=== PATIENT | female | born 1990 | race Caucasian/White ===

== ENCOUNTER 2025-03-25 11:27 | Emergency (ER) | payer BC, SELFPAY ==
[2025-03-25 11:41] VITALS: BP 102/79
[2025-03-25 11:56] LABS: % Basophils 0.1 % (0-2); % Eosinophils 0.7 % (0-6); % Immature Granulocytes 0.4 % (0-0.5); % Lymphocytes 6.6 % (20.5-51.1); % Monocytes 4.9 % (1.7-9.3); % Neutrophils 87.3 % (42.2-75.2); Absolute Eosinophils 0.1 10^3/uL (0-0.7); Absolute Lymphocytes 0.7 10^3/uL (1.2-3.4); Absolute Monocytes 0.5 10^3/uL (0.1-0.6); Absolute Neutrophils 8.6 10^3/uL (1.4-6.5); Hematocrit 39.9 % (37.0-47.0); Mean Corp Hgb Conc. 32.6 g/dL (33.0-37.0); Mean Corpuscular Volume 91.9 fL (81.0-99.0); Mean Platelet Volume 11.1 fL (7.4-10.4); Nucleated Red Blood Cells % 0 %; Platelet Count 195 10^3/uL (130-400); Red Blood Cell Count 4.34 10^6/uL (4.20-5.40); Red Cell Dist. Width 14.5 % (11.5-14.5); White Blood Cell Count 9.8 10^3/uL (4.8-10.8)
[2025-03-25 12:06] LABS: Urine Albumin 1+ (Neg - Trace); Urine Bilirubin Negative (Negative); Urine Character Cloudy (Clear); Urine Color Yellow; Urine Glucose Negative (Negative); Urine Ketone Negative (Negative); Urine Leukocyte 1+ (Negative); Urine Nitrite Negative (Negative); Urine Occult Blood 4+ (Negative); Urine Urobilinogen Negative (Neg - 1+)
[2025-03-25 12:14] LABS: HCG, Serum Qualitative Screen Negative
[2025-03-25 12:19] LABS: ALT (SGPT) < 10 U/L (0-35); AST (SGOT) 15 U/L (14-36); Albumin 4.6 g/dl (3.5-5.0); Alkaline Phosphatase 82 U/L (38-126); Blood Urea Nitrogen 10 mg/dl (7-17); Calcium 9.1 mg/dl (8.4-10.2); Carbon Dioxide 21 mmol/L (22-30); Chloride 107 mmol/L (98-107); Glucose 125 mg/dl (70-99); Potassium 3.9 mmol/L (3.5-5.1); Sodium 139 mmol/L (135-145); Total Bilirubin 0.8 mg/dl (0.2-1.3); Total Protein 6.7 g/dl (6.3-8.2); eGFR > 60.00
[2025-03-25 12:33] LABS: Lipase 26 U/L (23-300)
[2025-03-25 12:53] LABS: Urine Squamous Cell >30 /LPF (Few)
[2025-03-25 12:54] LABS: Urine Bacteria Moderate (Negative)
[2025-03-25 12:55] LABS: Urine Red Blood Cell 0-2 /HPF (0-2)
[2025-03-25] MEDS: NSS 1000 IV (15:15)
[2025-03-25] MEDS: TORADOL 30 MG IV (15:15)
[2025-03-25] MEDS: ZOFRAN 4 MG IV (15:15)
--- NOTE | 2025-03-25 15:19 | ED.GENMED ---
History of Present Illness
<Chalo Pineda PA-C - Last Filed: 03/25/25 16:16>
General
Chief Complaint: Abdominal Pain
Source: patient
Time Seen by Provider: 03/25/25 15:04
History of Present Illness
History of Present Illness:
34-year-old female with past medical history of GERD, anxiety and depression presenting to the emergency department for evaluation of relatively sudden onset nausea vomiting diarrhea at 4 AM this morning, continues with generalized abdominal
cramping currently. No fevers, chills, rigors. No known sick contacts, recent travel or recent antibiotics. Patient does note that she was out drinking on Tuesday evening but states that she did not drink any more than she normally would. Notes a
surgical history of previous but no other surgical history. Social history otherwise noncontributory.
Past History
<Chalo Pineda PA-C - Last Filed: 03/25/25 16:16>
Past History
ED Past Medical History: GERD and Psychiatric (Anxiety and depression)
ED Past Surgical History: Gynecological (D&C) and Other (Sinus surgery)
Social History
Tobacco: Former smoker
Alcohol: None
Drug: None
Personal:
Living: with family
Review of Systems
<Chalo Pineda PA-C - Last Filed: 03/25/25 16:16>
Review of Systems
All Other Systems: ROS reviewed and negative except as documented in HPI and ROS
Phy Exam
<Chalo Pineda PA-C - Last Filed: 03/25/25 16:16>
Physical Exam
Physical Exam:
GENERAL: Alert , in no apparent distress But does appear uncomfortable
EYE: clear conjunctiva b/l
HEAD: NCAT
ENT: mmm.
CARDIAC: Regular rate and rhythm .
LUNGS: Clear breath sounds bilaterally, no acute respiratory distress, no wheezes/rales/rhonchi
ABDOMEN: Soft, generalized tenderness, normoactive bowel sounds, no r/g, no cvat, negative Egan sign, no tenderness at McBurney's point
NEUROLOGICAL: Alert and oriented
SKIN: Warm and dry, skin intact.
MUSCULOSKELETAL: well perfused.
PSYCH: Normal and appropriate interaction.
Scores
<Chalo Pineda PA-C - Last Filed: 03/25/25 16:16>
Heart Failure Risk
Heart Failure Risk Score: Not Applicable
Heart Score for Chest Pain Patients
STEMI patient?: Not applicable
Withdrawal Assessment of Alcohol
Withdrawal Assessment Completed?: Not applicable
Course
<Chalo Pineda PA-C - Last Filed: 03/25/25 16:16>
Orders/Labs/Results
Orders:
Orders
03/25/25 11:43
Test Result ONCE
03/25/25 11:49
Complete Blood Count/With Diff Urgent
Comprehensive Metabolic Panel Urgent
HCG, Serum Qualitative Screen Urgent
Lipase Urgent
Urinalysis Reflex To Culture Urgent
Date Specimen was Collected: 03/25/25
Time Specimen was Collected: 11:43
Urine Microscopic Reflex Cult Urgent
Urine Culture Urgent
ANA LILIA Source: U
Specimen Description:
Date Specimen was Collected: 03/25/25
Time Specimen was Collected: 11:43
03/25/25 15:04
0.9% Sodium Chloride 1000 ml [Nss] 1,000 ml IV BOLUS
Ketorolac [Toradol] 30 mg IV NOW STA
Ondansetron Injectable [Zofran] 4 mg IV NOW STA
Abnormal Lab Results
03/25/25
11:49
MCHC 32.6 L g/dL
(33.0-37.0)
MPV 11.1 H fL
(7.4-10.4)
Absolute Neuts (auto) 8.6 H 10^3/uL
(1.4-6.5)
Absolute Lymphs (auto) 0.7 L 10^3/uL
(1.2-3.4)
Neutrophils % 87.3 H %
(42.2-75.2)
Lymphocytes % 6.6 L %
(20.5-51.1)
Carbon Dioxide 21 L mmol/L
(22-30)
Glucose 125 H mg/dl
(70-99)
Ur Occult Blood Reflex 4+ A
(Negative)
Leukocyte Esterase Rfl 1+ A
(Negative)
Urine Bacteria (Reflex) Moderate A
(Negative)
Urine Albumin (Reflex) 1+ A
(Neg - Trace)
03/25/25 11:49
03/25/25 11:49
Vital Signs
Initial and Last Documented VS:
Initial Vital Signs
Temp Pulse Resp BP Pulse Ox
98.4 F 99 16 102/79 98
03/25/25 11:41 03/25/25 11:41 03/25/25 11:41 03/25/25 11:41 03/25/25 11:41
Last Documented Vital Signs
Temp Pulse Resp BP Pulse Ox
98.4 F 99 16 118/70 99
03/25/25 11:41 03/25/25 11:41 03/25/25 11:41 03/25/25 15:23 03/25/25 15:23
<Sabiha Barriga PA-C - Last Filed: 03/25/25 17:10>
Orders/Labs/Results
Orders:
Orders
03/25/25 11:43
Test Result ONCE
03/25/25 11:49
Complete Blood Count/With Diff Urgent
Comprehensive Metabolic Panel Urgent
HCG, Serum Qualitative Screen Urgent
Lipase Urgent
Urinalysis Reflex To Culture Urgent
Date Specimen was Collected: 03/25/25
Time Specimen was Collected: 11:43
Urine Microscopic Reflex Cult Urgent
Urine Culture Urgent
ANA LILIA Source: U
Specimen Description:
Date Specimen was Collected: 03/25/25
Time Specimen was Collected: 11:43
03/25/25 15:04
0.9% Sodium Chloride 1000 ml [Nss] 1,000 ml IV BOLUS
Ketorolac [Toradol] 30 mg IV NOW STA
Ondansetron Injectable [Zofran] 4 mg IV NOW STA
Abnormal Lab Results
03/25/25
11:49
MCHC 32.6 L g/dL
(33.0-37.0)
MPV 11.1 H fL
(7.4-10.4)
Absolute Neuts (auto) 8.6 H 10^3/uL
(1.4-6.5)
Absolute Lymphs (auto) 0.7 L 10^3/uL
(1.2-3.4)
Neutrophils % 87.3 H %
(42.2-75.2)
Lymphocytes % 6.6 L %
(20.5-51.1)
Carbon Dioxide 21 L mmol/L
(22-30)
Glucose 125 H mg/dl
(70-99)
Ur Occult Blood Reflex 4+ A
(Negative)
Leukocyte Esterase Rfl 1+ A
(Negative)
Urine Bacteria (Reflex) Moderate A
(Negative)
Urine Albumin (Reflex) 1+ A
(Neg - Trace)
03/25/25 11:49
03/25/25 11:49
Vital Signs
Initial and Last Documented VS:
Initial Vital Signs
Temp Pulse Resp BP Pulse Ox
98.4 F 99 16 102/79 98
03/25/25 11:41 03/25/25 11:41 03/25/25 11:41 03/25/25 11:41 03/25/25 11:41
Last Documented Vital Signs
Temp Pulse Resp BP Pulse Ox
98.4 F 99 16 118/70 99
03/25/25 11:41 03/25/25 11:41 03/25/25 11:41 03/25/25 15:23 03/25/25 15:23
<Chalo Pineda PA-C - Last Filed: 03/25/25 16:16>
MDM/Problems Addressed
Differential Diagnosis Includes:
GERD, gastritis, colitis, gastroenteritis, appendicitis, cholecystitis, pancreatitis
MDM/Problems Addressed:
34-year-old female presenting to the ER for evaluation of relatively sudden onset nausea vomiting diarrhea all since 4 AM. Currently still feeling nauseous. She attempted some omeprazole at home with minimal relief. Labs were initiated on arrival
which show no leukocytosis, no electrolyte derangement, negative test. Will treat symptoms with Zofran, Toradol and fluids. Will reassess, if still having pain we will consider CT imaging. Disposition pending.
<Chalo Pineda PA-C - Last Filed: 03/25/25 16:16>
*Pulse Oximetry
Patient hypoxic: no
<Sabiha Barriga PA-C - Last Filed: 03/25/25 17:10>
*Critical Care Note
Total Time (30-74mins, 75-104mins- exclusive of procedures): Not Applicable
<Sabiha Barriga PA-C - Last Filed: 03/25/25 17:10>
Update Note
Update Note:
5:00 PM: Received patient in signout. Into reassess at bedside who is requesting discharge home. She has received almost a full liter of normal saline. She states she is feeling much better than when she arrived and she is hungry. Abdomen
remains soft with mild diffuse tenderness. No focal tenderness McBurney's point. Did offer patient CT scan although she declines. She is aware of risks and possibility misdiagnoses without CT imaging. She will monitor symptoms very closely at
home and return with any persistent/worsening symptoms.
ED Attending Note
<Chalo Pineda PA-C - Last Filed: 03/25/25 16:16>
-
Portions of this chart may have been created with voice recognition software.� Occasional wrong word or��sound alike� substitutions may have occurred due to the inherent limitations of voice recognition software.
Discharge Plan
Departure
Patient with high blood pressure during this ER visit?: No
Discharge Problem:
Abdominal pain
Instructions: Abdominal Pain
Prescriptions:
New
ondansetron 4 mg tablet,disintegrating
4 mg PO TIDPRN PRN (Reason: nausea/vomiting) Qty: 10 0RF
dicyclomine 20 mg tablet
20 mg PO BID PRN (Reason: abdominal pain) Qty: 10 0RF
Referrals:
UNKNOWN - PT DOES,NOT KNOW [Unknown Provider] -
Interventions
Interventions:
*Risk Screen - Suicide Last Done: 03/25/25 11:41
*General Assessment Last Done: 03/25/25 15:06
*Neglect/Abuse Screening Last Done: 03/25/25 11:41
*ED- Fall Risk Assessment Last Done: 03/25/25 15:06
*ED COVID-19 Vaccine History Last Done: 03/25/25 15:06
DW-Xduolp-Awfbxfrczk Assessment Last Done: 03/25/25 15:06
Discharge Date and Time
Print Language: SPANISH
[2025-03-25 15:23] VITALS: BP 118/70
[2025-03-25 16:00] VITALS: BP 118/75
[2025-03-25 17:00] VITALS: BP 125/67
== END 2025-03-25 17:51 | disposition home or self-care (01) ==
LOC: EMR 11:27
PROVIDERS: Student in an Organized Health Care Education/Training Program; EMERGENCY PHYSICIAN Emergency Medicine; FAMILY PHYSICIAN Family Medicine
DX: R10.9 Unspecified abdominal pain (principal); K21.9 Gastro-esophageal reflux disease without esophagitis; F41.9 Anxiety disorder, unspecified; F32.A Depression, unspecified; Z87.891 Personal history of nicotine dependence
CPT/HCPCS: 99284; 96374; 96375; 96361; 80053; 81003; 81015; 83690; 84703; 85025; 87086